=== PATIENT | male | born 1935 | race Caucasian/White ===

== ENCOUNTER → 2019-07-06 | Outpatient (CLI) | payer OTHER | LOC: M.MRI 16:52 | DX: M76.02 Gluteal tendinitis, left hip (principal); M16.32 Unilateral osteoarthritis resulting from hip dysplasia, left hip; M25.852 Other specified joint disorders, left hip ==

== ENCOUNTER → 2019-07-25 | Outpatient (CLI) | payer OTHER ==
[2019-07-25 13:18] LABS: POTASSIUM 4.5 mmol/L (3.5-5.1)
== END ==
LOC: M.LAB 04:43
PROVIDERS: Anesthesiology
DX: E11.9 Type 2 diabetes mellitus without complications (principal); E87.6 Hypokalemia